=== PATIENT | female | born 2000 | race Caucasian/White ===

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

== ENCOUNTER 2022-03-16 11:44 | Emergency (ER) | payer OTHER, MEDICAID ==
[~2022-03-16] VITALS: Ht 160 cm; Wt 104.0 kg
[2022-03-16 13:48] VITALS: BP 125/79
== END 2022-03-16 13:48 | disposition home or self-care (01) | DRG 552 ==
LOC: ED 11:44
DX: M54.50 Low back pain, unspecified (principal); M54.6 Pain in thoracic spine; F41.9 Anxiety disorder, unspecified; F17.290 Nicotine dependence, other tobacco product, uncomplicated; V53.5XXA Driver of pick-up truck or van injured in collision with car, pick-up truck or van in traffic accident, initial encounter

== ENCOUNTER 2023-02-05 09:16 | Day surgery (SDC) | payer MEDICAID ==
[~2023-02-05] VITALS: Ht 170.2 cm; Wt 108.4 kg
[~2023-02-05 09:16] MED LIST changes: +ANTIBIOT EAR11 OT; +VALACYCLOVIR HYD1 GM PO
[2023-02-05] MEDS ORDERED: LORTAB 5/3255 MG PO (12:37)
[2023-02-05 14:18] VITALS: BP 126/77
== END 2023-02-05 14:05 | disposition home or self-care (01) ==
LOC: ORM 09:16
PROVIDERS: ATTEND Surgery
DX: M79.89 Other specified soft tissue disorders (principal); D22.5 Melanocytic nevi of trunk
CPT/HCPCS: J0131; J0690